=== PATIENT | male | born 1950 | race Caucasian/White ===

== ENCOUNTER → 2017-10-30 | Outpatient (CLI) | payer OTHER ==
--- NOTE | 2017-10-30 13:17 | US ---
History: Palpable mass right upper arm for 2 years Study: Ultrasound of the palpable mass of the right upper arm Findings: Corresponding to the palpable mass is a subcutaneous nodule measuring 1.97 x 0.62 cm by 1.7 4 cm with imaging characteristics typical for a lipoma. Impression: Clinically palpable right upper arm mass corresponds to a lipoma Reported By:
== END ==
LOC: RAD 10:52
PROVIDERS: ATTEND Nurse Practitioner Family
DX: I88.9 Nonspecific lymphadenitis, unspecified (principal)
CPT/HCPCS: 76881